=== PATIENT | female | born 1970 | race Caucasian/White ===

== ENCOUNTER 2016-12-07 11:14 | Emergency (ER) | payer OTHER ==
--- NOTE | 2016-12-07 12:28 | ED ORDER SUMMARY ---
..... Patient: LIBAN RODGERS OrderSheet [facility] VisitID: [id number] [address] [place] [address] 45y, F Registration Date/Time: 12/07/2016 ORDER SHEET Weight: 71.2 kg (stated) Allergies: Penicillins, Sulfa Antibiotics, Compazine, Aleve GENERAL ORDERS: MEDICATION ORDERS: Dilaudid IM 2 mg (HIGH ALERT MEDICATION, NOW) (11:51 12/07/2016 Tabby HARRIS) (Ack 11:52 KPajermaine-Lore R.N.) (12:00 KPajermaine-Lore R.N.) Zofran ODT PO 4 mg (NOW) (11:52 12/07/2016 Tabby HARRIS) (Ack 11:52 KPajermaine-Lore R.N.) (12:00 KPajermaine-Ramonan R.N.) IV FLUIDS: ORDER SHEET NOTES: [Electronically signed by Steve Bassett R.N. (13:07 12/07/2016)] [Electronically signed by Chuck Marroquin DO (17:13 12/07/2016)] [Electronically locked/signed by Steve Bassett R.N. (13:07 12/07/2016)]
--- NOTE | 2016-12-07 12:28 | ED NURSING NOTES ---
Clinical Report - Nurses [facility] [address] [place] [address] 12/07/2016 11:15 Patient: LIBAN RODGERS TRIAGE Triage time 11:Dec 07 2016. Acuity: LEVEL 2. Chief Complaint: Location of symptoms- lower back (with radiation to the left leg) (pt reports being ill with URI symptoms for 2 weeks, pt while coughing and sneezing sitting at desk pt had sudden onset of left sided low back pain with radiation down left leg). LEFT LOWER EXTREMITY PAIN. Alert. No acute distress. SUSAN COMA SCORE: Wellesley Coma Scale: 15- eyes open spontaneously (4); best verbal response- oriented x 4 (5); best motor response- obeys commands (6). --11:34 Steve Bassett R.N. 11:21 12/07/16. BP: 143/85. HR: 104. RR: 17. O2 saturation: 99%. Temp: 98.0 F. Pain level now 8/10. --11:34 Steve Bassett R.N. Weight: 71.2 kg stated. Height/Length: 63 inches Per Patient. BMI: 27.8. --11:30 Steve Bassett R.N. Medications TraZODone HCl Oral (Tablet 100 mg) 1 tablet, at bedtime. --11:27 Steve Bassett R.N. Depo-Provera Intramuscular (last given x 2 months). --11:27 Steve Bassett R.N. Allergies Penicillins. --11:26 Steve Bassett R.N. Sulfa Antibiotics. --11:26 Steve Bassett R.N. Compazine. --11:26 Steve Bassett R.N. Aleve. --11:26 Steve Bassett R.N. History Arrived by private vehicle. Historian: patient and family. Accompanied by family and daughter. No injury occurred. It is described as radiating to the left lower back, lower extremity and thigh. Provoking / relieving factors: worsened by movement, sitting, standing, walking and cough and not worsened by lying down. The patient has had trouble walking. Treatment [employer]: Applied ice and heat. Took ibuprofen. (voltaren cream, lido patches). PAST MEDICAL HX: Negative. Tetanus status: up-to-date. Immunizations: up-to-date. Last normal menstrual period- 4 years pt on depo provera 11:30 Dec 07 2016. SOCIAL HX: Heavy tobacco smoker (cigarette)- less than 1 pack per day. Alcohol use; consumes liquor weekly and wine weekly. No drug use. ABUSE ASSESSMENT: No report of abuse. SELF HARM ASSESSMENT: A self harm assessment was performed. The patient answered "no" to the question "Have you recently felt down, depressed, or hopeless?", "Have you noticed less interest or pleasure in doing things?", "Do you have thoughts of harming or killing yourself?", "Are you here because you tried to hurt yourself?", "Have you ever tried to hurt yourself before today?", "Have you recently had thoughts about harming or killing others?" and "Do you have any dangerous items in your possession?". FALL RISK ASSESSMENT: Fall risk assessment completed. No fall risk identified. NUTRITIONAL RISK ASSESSMENT: The nutritional risk assessment revealed no deficiencies. FUNCTIONAL ASSESSMENT: Functional assessment: no impairments noted. LEARNING NEEDS ASSESSMENT: The learning needs assessment revealed no barriers. SKIN INTEGRITY ASSESSMENT: Skin integrity risk assessment completed. No skin integrity risk identified. --11:34 Steve Bassett RKiN. Interventions ID and allergy band on patient. --11:34 Steve Bassett RJillian. PHYSICAL ASSESSMENT 11:35 12/07/16. Ambulatory to room. Patient gowned. GENERAL / NEURO / PSYCH: Oriented X 4. Alert. Appears in no acute distress. Appears in pain. EXTREMITIES: Limited ROM present (due to pain). Extremity pulses are within normal limits. Neuro-vascular status intact to the extremity. No lower extremity edema. Left hip: (pain to left lower back that radiates down left leg- NKT). SKIN: Skin intact. Skin is warm and dry. BACK: Normal inspection of the back. Limited ROM in the back- (limited movement due to pain). --11:35 Steve Bassett R.N. NURSING PROGRESS NOTES 11:42 12/07/16. Reassurance given. Two patient identifiers checked. Call light placed in reach. Side rails up x 1. Bed placed in lowest position. Brakes of bed on. --11:52 Steve Bassett R.N. 12:00 12/07/2016 Zofran ODT (Ondansetron) PO Oral Disintegrating Tablets 4 mg given. Allergies verified and confirmed 5 rights. --12:00 Steve Bassett R.N. 12:00 12/07/2016 Dilaudid (HYDROmorphone HCl PF) IM 2 mg given. Given in the right gluteus bobbi. Allergies verified, confirmed 5 rights and sedative warning given to the patient and patient's family. --12:00 Steve Bassett R.N. Call light placed in reach. Bed placed in lowest position. Brakes of bed on. Patient waiting for (dispo paperwork). ( pt reports dec in pain following meds given, "I feel kind of like butterflies in my stomach so it's working" pt with family at bedside, call light in reach, waiting paperwork for dispo home). --12:44 Steve Bassett R.N. 12:44 12/07/2016 Dilaudid IM Response: no adverse reaction pain is improving. Symptoms have improved the patient feels better. --12:45 Steve Bassett R.N. 12:45 12/07/2016 Zofran ODT PO Response: no adverse reaction symptoms have improved the patient feels better. --12:45 Steve Bassett R.N. Reassessment after medication administered. She is calm and resting quietly and has had no adverse reaction. Overall patient status is improved. GENERAL / NEURO / PSYCH: Alert. Oriented X 4. RESPIRATORY: No respiratory distress. --12:45 Steve Bassett R.N. DISPOSITION / DISCHARGE 12:57 12/07/16. Condition at departure: improved. No learning barriers present. Discharge instructions provided and reviewed with the patient and family. Reviewed medication(s) side effects information. Prescription(s) given to the patient. Activity restrictions reviewed (reviewed MDs instructions for pt). Work note given. Patient verbalized understanding. Written instructions provided in Syriac. The patient was discharged by the physician. She was discharged home and accompanied by family. She left the Emergency Department ambulatory and via private vehicle. Family member driving. ( pt dc home ambulatory, reports some improvement in condition, given rx and f/u. pt enc to rest and follow dr's instructions for followup). --13:06 Steve Bassett R.N. 12:57 12/07/16. BP: 134/75. HR: 92. RR: 17. O2 saturation: 99%. Temp: 98.1 F. Pain level now 02/16. --13:06 Steve Bassett R.N. Locked/Released at 12/07/2016 13:07 by Steve Bassett R.N.
--- NOTE | 2016-12-07 12:28 | ED CLINICAL REPORT ---
Clinical Report - Physicians/Mid Levels [facility] [address] [place] [address] 12/07/2016 11:15 Patient: LIBAN RODGERS Time Seen: 11:42. Arrived- By private vehicle. Historian- patient. HISTORY OF PRESENT ILLNESS Chief Complaint: BACK PAIN. Onset- about 2 days ago and it is still present. It was gradual in onset and has been waxing/waning. Modifying factors- worsened by walking, rotation of the body, bending over or lifting. Relieved by remaining still. It is described as being moderate in degree and in the area of the left lower lumbar spine and left gluteus and radiating to the left thigh (no pain past the knee). The pain does not radiate to the left knee. The quality is noted to be "pain" and similar to prior episodes. No bladder dysfunction, bowel dysfunction, sensory loss or motor loss. Additional history - pt reports being ill with URI symptoms for 2 weeks, pt while coughing and sneezing sitting at desk pt had sudden onset of left sided low back pain with radiation down left leg. Patient notes the possibility of an injury but denies injury to the head or neck. Mechanism of injury- she was lifting, turning and bending. Occurred at home. No other injury. Similar symptoms previously: Recent medical care: Not recently seen/assessed. REVIEW OF SYSTEMS Last normal menstrual period- Last normal menstrual period- 4 years pt on depo provera 11:30 Dec 07 2016. No fever, chills, difficulty with urination, urinary frequency or hematuria. No skin rash, headache, sore throat, cough or difficulty breathing. No chest pain, abdominal pain, nausea, vomiting or diarrhea. No black stools or bloody stools. The patient has had nasal congestion. All systems otherwise negative, except as recorded above. PAST HISTORY Has had back injury. She has had prior back pain. Left upper extremity fracture repair Prior opiate dependence - on methadone in the past. No history of aortic aneurysm. No history of coronary artery disease or peripheral vascular disease. Has not had urinary calculi. Has not had UTI. Medications: Depo-Provera Intramuscular (last given x 2 months). TraZODone HCl Oral (Tablet 100 mg) 1 tablet, at bedtime. Allergies: Aleve. Compazine. Penicillins. Sulfa Antibiotics. SOCIAL HISTORY Smoker- current status unknown. Alcohol use. No drug use. Is a local resident. 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 ADDITIONAL NOTES The nursing notes have been reviewed. PHYSICAL EXAM Vital Signs: 12/07/2016 11:21 BP: 143/85. HR: 104. RR: 17. O2 saturation: 99%. Temp: 98.0 F. Appearance: Alert. Patient in moderate distress. HEENT: Normal external inspection. Eyes: No scleral icterus or pale conjunctivae. ENT: Pharynx normal. No pharyngeal erythema or tonsillar exudate. Neck: Normal inspection. Neck nontender. Painless ROM. CVS: Heart sounds normal. Pulses normal. Respiratory: No respiratory distress. Abdomen: No visible injury. Soft and nontender. No mass. Back: Normal inspection. Moderate soft tissue tenderness in the right lower lumbar area. No vertebral point tenderness or CVA tenderness. Skin: Skin warm and dry. Normal skin color. Normal skin turgor. Extremities: Extremities exhibit normal ROM. No lower extremity edema. Extremities nontender. No calf tenderness. Neuro: Oriented X 3. Abnormal mood/affect. No motor deficit. No sensory deficit. Straight leg raising: negative on the right and negative on the left. Reflexes normal. Reflex exam: right patellar 2+, left patellar 2+, right Achilles 2+ and left Achilles 2+. PROGRESS AND PROCEDURES Course of Care: Zofran 4 mg ODT PO given. Dilaudid 2 mg IM given. No signs of cord compression now. No pain below the knee and neg SLR now. No irritative voiding symptoms. She reports blood in her urine since she was a child - no change in recent months. No reason to suspect spinal / epidural infectious process / discitis. She may need a nonermergent MRI if not improving. She has had prior opiate dependence and has required methadone maintenance, but states this was at least 4 years ago. I have discussed the use of opiate pain medications with patient and she feels she would like to use them for this pain. She is instructed that going forward, she will need to have a pcp and / or pain specialist manage her pain if opiates area required. No indication for further emergent imaging or lab. Patient/family counseled. Old ED records reviewed. Disposition: Discharged. Condition: stable and improved. CLINICAL IMPRESSION Acute left sided sciatica with low back pain. Essential hypertension. URI - resolving. INSTRUCTIONS Apply ice. Limit lifting. Rest. Do not work for three days. Warnings: SEDATIVE MEDICATION: You were given sedative medication during your visit. Do not drive or operate dangerous machinery. CONTROLLED SUBSTANCE WARNINGS. Further evaluation is necessary in order to conduct further tests (You may need an MRI of your back if not improving; You report having chronic blood in your urine since childhod - you will need to see a urologist for an evaluation of this). It is very important to follow up with a physician. GENERAL WARNINGS: Return or contact your physician immediately if your condition worsens or changes unexpectedly, if not improving as expected, or if other problems arise. Prescription Medications: Hydrocodone/APAP 5mg/325mg: take 1 to 2 orally every 6 hours as needed for pain. Dispense fifteen (15). No refills. Flexeril 10 mg: Take 1 orally every 8 hours as needed for muscle spasm. Dispense twenty (20). No refills. Substitution is permissible. Follow-up: Follow up with your doctor Please follow up with the walk-in clinic affiliated with your doctor if you need any ongoing narcotic pain medication. You may need additional imaging tests which can be ordered by your clinic pending the first appointment with your new primary care doctor in about three days. Screening today revealed the patient's blood pressure to be in the hypertensive range. The patient should follow up with a primary care provider for blood pressure management. (Electronically signed by Chuck Marroquin DO 12/07/2016 17:13)
--- NOTE | 2016-12-07 12:28 | ED ORDER SUMMARY ---
..... Patient: LIBAN RODGERS OrderSheet [facility] VisitID: [id number] [address] [place] [address] 45y, F Registration Date/Time: 12/07/2016 ORDER SHEET Weight: 71.2 kg (stated) Allergies: Penicillins, Sulfa Antibiotics, Compazine, Aleve GENERAL ORDERS: MEDICATION ORDERS: Dilaudid IM 2 mg (HIGH ALERT MEDICATION, NOW) (11:51 12/07/2016 Tabby HARRIS) (Ack 11:52 KPajermaine-Lore R.N.) (12:00 KPajermaine-Lore R.N.) Zofran ODT PO 4 mg (NOW) (11:52 12/07/2016 Tabby HARRIS) (Ack 11:52 KPajermaine-Lore R.N.) (12:00 KPajermaine-Ramonan R.N.) IV FLUIDS: ORDER SHEET NOTES: [Electronically signed by Steve Bassett R.N. (13:07 12/07/2016)] [Electronically signed by Chuck Marroquin DO (17:13 12/07/2016)] [Electronically locked/signed by Steve Bassett R.N. (13:07 12/07/2016)]
--- NOTE | 2016-12-07 17:13 | ED MED RECONCILIATION SUMMARY ---
Patient: LIBAN RODGERS Medication Reconciliation Report [facility] VisitID: [id number] [place] [address] 45y, F Registration Date/Time: 12/07/2016 Weight: 71.2 kg Height/Length: 63 in. BMI: 27.8 ALLERGIES: Aleve, Compazine, Penicillins, Sulfa Antibiotics The patient's Home Medications are listed below: THE FOLLOWING MEDICATIONS NEED TO BE RECONCILED: Depo-Provera Intramuscular, last given x 2 months TraZODone HCl Oral (100 mg) 1 tablet, at bedtime The source(s) of the original Home Medication information: Not obtained. The following Medications were given to the patient in the Emergency Department: Zofran ODT [PO] PO 4 mg, administered: 12/07/2016 12:00:00 PM Dilaudid [IM] IM 2 mg, administered: 12/07/2016 12:00:00 PM The following Medications were prescribed to the patient: Hydrocodone/APAP 5mg/325mg: take 1 to 2 orally every 6 hours as needed for pain. Dispense fifteen (15). No refills. -- Chuck Marroquin DO Flexeril 10 mg: Take 1 orally every 8 hours as needed for muscle spasm. Dispense twenty (20). No refills. Substitution is permissible. -- Chuck Marroquin DO
--- NOTE | 2016-12-07 17:13 | ED MAR SUMMARY ---
..... Medication Administration Record [facility] [address] [place] [address] Patient: LIBAN RODGERS Visit ID: [id number] 45y, F Weight: 71.2 kg Height/Length: 63 in BMI: 27.8 ALLERGIES: Aleve, Compazine, Sulfa Antibiotics, Penicillins Given 12:00 12/07/2016 Steve Bassett RMelly Medication Administered: DILAUDID [IM] (HYDROMORPHONE HCL PF), Dose: 2 mg IM. Medication Ordered: Dilaudid IM 2 mg (HIGH ALERT MEDICATION, NOW). Given 12:00 12/07/2016 Steve Bassett RMelly Medication Administered: ZOFRAN ODT [PO] (ONDANSETRON), Dose: 4 mg Oral Disintegrating Tablets PO. Medication Ordered: Zofran ODT PO 4 mg (NOW).
--- NOTE | 2016-12-07 17:13 | ED DISCHARGE INSTRUCTIONS ---
Patient: LIBAN RODGERS General Instructions [facility] VisitID: [id number] [place] [address] 45y, F Registration Date/Time: 12/07/2016 Acute left sided sciatica with low back pain. Essential hypertension. URI - resolving. INSTRUCTIONS Apply ice. Limit lifting. Rest. Do not work for three days. Warnings: SEDATIVE MEDICATION: You were given sedative medication during your visit. Do not drive or operate dangerous machinery. CONTROLLED SUBSTANCE WARNINGS. Further evaluation is necessary in order to conduct further tests (You may need an MRI of your back if not improving; You report having chronic blood in your urine since childhod - you will need to see a urologist for an evaluation of this). It is very important to follow up with a physician. GENERAL WARNINGS: Return or contact your physician immediately if your condition worsens or changes unexpectedly, if not improving as expected, or if other problems arise. Prescription Medications: Hydrocodone/APAP 5mg/325mg: take 1 to 2 orally every 6 hours as needed for pain. Dispense fifteen (15). No refills. Flexeril 10 mg: Take 1 orally every 8 hours as needed for muscle spasm. Dispense twenty (20). No refills. Substitution is permissible. Follow-up: Follow up with your doctor Please follow up with the walk-in clinic affiliated with your doctor if you need any ongoing narcotic pain medication. You may need additional imaging tests which can be ordered by your clinic pending the first appointment with your new primary care doctor in about three days. Screening today revealed the patient's blood pressure to be in the hypertensive range. The patient should follow up with a primary care provider for blood pressure management. ADDITIONAL INFORMATION Sciatica Sciatica ("Lumbar Radiculopathy") causes a pain that spreads from the lower back down into the buttock, hip and leg. Sometimes leg pain can occur without any back pain. Sciatica is due to irritation or pressure on a spinal nerve as it comes out of the spinal canal. This is most often due to a bulge or rupture of a nearby spinal disk (the cartilage cushion between each spinal bone), which presses on a nearby nerve. Other causes include spinal stenosis (narrowing of the spinal canal) and spasm of the pyriform muscle (a muscle in the buttocks that the sciatic nerve passes through). Sciatica may begin after a sudden twisting/bending force (such as in a car accident), or sometimes after a simple awkward movement. In either case, muscle spasm is commonly present and contributes to the pain. The diagnosis of sciatica is made from the symptoms and physical exam. Unless you had a physical injury (such as a car accident or fall), X-rays are usually not ordered for the initial evaluation of sciatica because the nerves and disks cannot be seen on an x-ray. If signs of a compressed nerve are present (for example, loss of tendon reflex or strength in the leg), an MRI (magnetic resonance imaging) scan will need to be scheduled as an outpatient. Most sciatica (80-90%) gets better with medicine, exercise, physical therapy. If symptoms continue after at least three months of medical treatment, surgery may be considered. Home Care: You may need to stay in bed the first few days. But, as soon as possible, begin sitting or walking to avoid problems with prolonged bed rest. When in bed, try to find a position of comfort. A firm mattress is best. Try lying flat on your back with pillows under your knees. You can also try lying on your side with your knees bent up towards your chest and a pillow between your knees. Avoid prolonged sitting. This puts more stress on the lower back than standing or walking. Some persons find relief with heat (hot shower, hot bath or heating pad) and massage, while others prefer cold packs (crushed or cubed ice in a plastic bag, wrapped in a towel). Try both and use the method that feels best for 20 minutes several times a day. You may use acetaminophen (Tylenol) or ibuprofen (Motrin, Advil) to control pain, unless another pain medicine was prescribed. [ NOTE: If you have chronic liver or kidney disease or ever had a stomach ulcer or GI bleeding, talk with your doctor before using these medicines.] Be aware of safe lifting methods and do not lift anything over 15 pounds until all the pain is gone. Follow Up with your doctor or this facility if your symptoms do not start to improve after one week. Physical therapy or further testing may be needed. [NOTE: If X-rays were taken, they will be reviewed by a radiologist. You will be notified of any new findings that may affect your care.] Get Prompt Medical Attention if any of the following occur: Pain becomes worse, not controlled by the prescribed medicine Weakness or numbness in one or both legs Numbness in the groin, genital area Loss of bowel or bladder control High Blood Pressure -- To Be Confirmed [No Tx] Your blood pressure was higher today than normal. Sometimes anxiety or pain can cause a temporary rise in blood pressure that later returns to normal. If your blood pressure is high on one measurement, this does not mean that you have hypertension (a chronic illness). However, you must have your blood pressure measured again within the next few days to find out if its still high. A normal blood pressure is 120/80 or less. The first (top) number is the "systolic" pressure. The second (bottom) number is the "diastolic" pressure. Hypertension exists when either the top number is 140 or higher, OR the bottom number is 90 or higher on repeated measurements. Blood pressure in the range of 120-140 (systolic) or 80-89 (diastolic) is considered "pre-hypertension". This means your are at risk for getting hypertension. You should have regular blood pressure checks to be sure your blood pressure is not rising. Home Care: Measure your blood pressure on 3 different days and write down the results. This can be done at your doctor's office or this facility. Some pharmacies and grocery stores offer automated blood pressure machines for your use. Follow Up: If your blood pressure is "high" (over 120/80) on 2 out of 3 days, you will need to follow up with your doctor for further evaluation and treatment. DO NOT PUT THIS OFF! Untreated high blood pressure increases the risk for heart attack, also known as acute myocardial infarction, or AMI, and stroke. It is a treatable condition. Get Prompt Medical Attention if any of the following occur: Chest pain or shortness of breath Severe headache Throbbing or rushing sound in the ears Nosebleed Sudden severe abdominal pain Extreme drowsiness, confusion or fainting Dizziness or vertigo (dizziness with spinning sensation) Weakness of an arm or leg or one side of the face Difficulty with speech or vision Hydrocodone Bitartrate, Acetaminophen Oral tablet What is this medicine? ACETAMINOPHEN; HYDROCODONE (a set a IVA harlan fen; freddie droe KOE done) is a pain reliever. It is used to treat mild to moderate pain. How should I use this medicine? Take this medicine by mouth. Swallow it with a full glass of water. Follow the directions on the prescription label. If the medicine upsets your stomach, take the medicine with food or milk. Do not take more than you are told to take. Talk to your director outpatient services regarding the use of this medicine in children. This medicine is not approved for use in children. What side effects may I notice from receiving this medicine? Side effects that you should report to your doctor or health progressive care unit registered nurse as soon as possible: allergic reactions like skin rash, itching or hives, swelling of the face, lips, or tongue breathing problems confusion feeling faint or lightheaded, falls stomach pain yellowing of the eyes or skin Side effects that usually do not require medical attention (report to your doctor or health progressive care unit registered nurse if they continue or are bothersome): nausea, vomiting stomach upset What may interact with this medicine? alcohol antihistamines isoniazid medicines for depression, anxiety, or psychotic disturbances medicines for sleep muscle relaxants naltrexone narcotic medicines (opiates) for pain phenobarbital ritonavir tramadol What if I miss a dose? If you miss a dose, take it as soon as you can. If it is almost time for your next dose, take only that dose. Do not take double or extra doses. Where should I keep my medicine? Keep out of the reach of children. This medicine can be abused. Keep your medicine in a safe place to protect it from theft. Do not share this medicine with anyone. Selling or giving away this medicine is dangerous and against the law. Store at room temperature between 15 and 30 degrees C (59 and 86 degrees F). Protect from light. Keep container tightly closed. Throw away any unused medicine after the expiration date. Discard unused medicine and used packaging carefully. Pets and children can be harmed if they find used or lost packages. What should I tell my health care provider before I take this medicine? They need to know if you have any of these conditions: brain tumor Crohn's disease, inflammatory bowel disease, or ulcerative colitis drink more than 3 alcohol-containing drinks per day drug abuse or addiction head injury heart or circulation problems kidney disease or problems going to the bathroom liver disease lung disease, asthma, or breathing problems an unusual or allergic reaction to acetaminophen, hydrocodone, other opioid analgesics, other medicines, foods, dyes, or preservatives or trying to get breast-feeding What should I watch for while using this medicine? Tell your doctor or health progressive care unit registered nurse if your pain does not go away, if it gets worse, or if you have new or a different type of pain. You may develop tolerance to the medicine. Tolerance means that you will need a higher dose of the medicine for pain relief. Tolerance is normal and is expected if you take the medicine for a long time. Do not suddenly stop taking your medicine because you may develop a severe reaction. Your body becomes used to the medicine. This does NOT mean you are addicted. Addiction is a behavior related to getting and using a drug for a non-medical reason. If you have pain, you have a medical reason to take pain medicine. Your doctor will tell you how much medicine to take. If your doctor wants you to stop the medicine, the dose will be slowly lowered over time to avoid any side effects. You may get drowsy or dizzy when you first start taking the medicine or change doses. Do not drive, use machinery, or do anything that may be dangerous until you know how the medicine affects you. Stand or sit up slowly. There are different types of narcotic medicines (opiates) for pain. If you take more than one type at the same time, you may have more side effects. Give your health care provider a list of all medicines you use. Your doctor will tell you how much medicine to take. Do not take more medicine than directed. Call emergency for help if you have problems breathing. The medicine will cause constipation. Try to have a bowel movement at least every 2 to 3 days. If you do not have a bowel movement for 3 days, call your doctor or health progressive care unit registered nurse. Too much acetaminophen can be very dangerous. Do not take Tylenol (acetaminophen) or medicines that contain acetaminophen with this medicine. Many non-prescription medicines contain acetaminophen. Always read the labels carefully. Cyclobenzaprine Hydrochloride Oral tablet What is this medicine? CYCLOBENZAPRINE (christelle munguia) is a muscle relaxer. It is used to treat muscle pain, spasms, and stiffness. How should I use this medicine? Take this medicine by mouth with a glass of water. Follow the directions on the prescription label. If this medicine upsets your stomach, take it with food or milk. Take your medicine at regular intervals. Do not take it more often than directed. Talk to your director outpatient services regarding the use of this medicine in children. Special care may be needed. What side effects may I notice from receiving this medicine? Side effects that you should report to your doctor or health progressive care unit registered nurse as soon as possible: allergic reactions like skin rash, itching or hives, swelling of the face, lips, or tongue chest pain fast heartbeat hallucinations seizures vomiting Side effects that usually do not require medical attention (report to your doctor or health progressive care unit registered nurse if they continue or are bothersome): headache What may interact with this medicine? Do not take this medicine with any of the following medications: cisapride droperidol flecainide grepafloxacin halofantrine levomethadyl MAOIs like Carbex, Eldepryl, Marplan, Nardil, and Parnate nilotinib pimozide probucol sertindole This medicine may also interact with the following medications: abarelix alcohol contrast dyes dolasetron guanethidine medicines for cancer medicines for depression, anxiety, or psychotic disturbances medicines to treat an irregular heartbeat medicines used for sleep or numbness during surgery or procedure methadone octreotide ondansetron palonosetron phenothiazines like chlorpromazine, mesoridazine, prochlorperazine, thioridazine some medicines for infection like alfuzosin, chloroquine, clarithromycin, levofloxacin, mefloquine, pentamidine, troleandomycin tramadol vardenafil What if I miss a dose? If you miss a dose, take it as soon as you can. If it is almost time for your next dose, take only that dose. Do not take double or extra doses. Where should I keep my medicine? Keep out of the reach of children. Store at room temperature between 15 and 30 degrees C (59 and 86 degrees F). Keep container tightly closed. Throw away any unused medicine after the expiration date. What should I tell my health care provider before I take this medicine? They need to know if you have any of these conditions: heart disease, irregular heartbeat, or previous heart attack liver disease thyroid problem an unusual or allergic reaction to cyclobenzaprine, tricyclic antidepressants, lactose, other medicines, foods, dyes, or preservatives or trying to get breast-feeding What should I watch for while using this medicine? Check with your doctor or health progressive care unit registered nurse if your condition does not improve within 1 to 3 weeks. You may get drowsy or dizzy when you first start taking the medicine or change doses. Do not drive, use machinery, or do anything that may be dangerous until you know how the medicine affects you. Stand or sit up slowly. Your mouth may get dry. Drinking water, chewing sugarless gum, or sucking on hard candy may help. You have been given the following additional information: Back Pain W/ Sciatica Hypertension, To Be Confirmed Hydrocodone Bitartrate, Acetaminophen Oral tablet Cyclobenzaprine Hydrochloride Oral tablet Limit lifting. Rest. Do not work for three days. (Electronically signed by Chuck Marroquin DO 12/07/2016 17:13)
--- NOTE | 2016-12-07 17:13 | ED MAR SUMMARY ---
..... Medication Administration Record [facility] [address] [place] [address] Patient: LIBAN RODGERS Visit ID: [id number] 45y, F Weight: 71.2 kg Height/Length: 63 in BMI: 27.8 ALLERGIES: Aleve, Compazine, Sulfa Antibiotics, Penicillins Given 12:00 12/07/2016 Steve Bassett RMelly Medication Administered: DILAUDID [IM] (HYDROMORPHONE HCL PF), Dose: 2 mg IM. Medication Ordered: Dilaudid IM 2 mg (HIGH ALERT MEDICATION, NOW). Given 12:00 12/07/2016 Steve Bassett RMelly Medication Administered: ZOFRAN ODT [PO] (ONDANSETRON), Dose: 4 mg Oral Disintegrating Tablets PO. Medication Ordered: Zofran ODT PO 4 mg (NOW).
--- NOTE | 2016-12-07 17:13 | ED MED RECONCILIATION SUMMARY ---
Patient: LIBAN RODGERS Medication Reconciliation Report [facility] VisitID: [id number] [place] [address] 45y, F Registration Date/Time: 12/07/2016 Weight: 71.2 kg Height/Length: 63 in. BMI: 27.8 ALLERGIES: Aleve, Compazine, Penicillins, Sulfa Antibiotics The patient's Home Medications are listed below: THE FOLLOWING MEDICATIONS NEED TO BE RECONCILED: Depo-Provera Intramuscular, last given x 2 months TraZODone HCl Oral (100 mg) 1 tablet, at bedtime The source(s) of the original Home Medication information: Not obtained. The following Medications were given to the patient in the Emergency Department: Zofran ODT [PO] PO 4 mg, administered: 12/07/2016 12:00:00 PM Dilaudid [IM] IM 2 mg, administered: 12/07/2016 12:00:00 PM The following Medications were prescribed to the patient: Hydrocodone/APAP 5mg/325mg: take 1 to 2 orally every 6 hours as needed for pain. Dispense fifteen (15). No refills. -- Chuck Marroquin DO Flexeril 10 mg: Take 1 orally every 8 hours as needed for muscle spasm. Dispense twenty (20). No refills. Substitution is permissible. -- Chuck Marroquin DO
== END 2016-12-07 12:57 | disposition home or self-care (01) ==
LOC: ED SRH 11:14
DX: M54.42 Lumbago with sciatica, left side (principal); I10 Essential (primary) hypertension; J06.9 Acute upper respiratory infection, unspecified; Z79.899 Other long term (current) drug therapy; Z88.2 Allergy status to sulfonamides; Z88.0 Allergy status to penicillin; Z88.8 Allergy status to other drugs, medicaments and biological substances

== ENCOUNTER 2017-01-18 13:12 | Outpatient (CLI) | payer OTHER ==
--- NOTE | 2017-01-18 15:01 | DIAGNOSTIC IMAGING REPORT ---
REFERRING PHYSICIAN/PROVIDER: Law Leal MD [employer]SULTING [employer]ANT TECHNICIAN: Ashkan Dale MD INDICATION: SINUS TACHYCARDIA Procedure: A two-dimensional transthoracic echocardiogram with color flow and Doppler was performed. The study quality was technically adequate. There is no prior echocardiogram noted for this patient. The patient was in normal sinus rhythm during the exam. Left Ventricle: The left ventricle is normal in size. Left ventricular wall thickness is normal. Left ventricular systolic function is normal. The ejection fraction is estimated to be 60-65%. There are no obvious focal wall motion abnormalities noted but poor endocardial definition reduces the sensitivity for the detection of such. Assessment of diastolic parameters indicates normal left ventricular diastolic function and normal filling pressures. Right Ventricle: The right ventricle is normal in size and function. Atria: Both atria are normal in size. The interatrial septum is intact with no evidence for an atrial septal defect. Mitral Valve: The mitral valve is normal in structure and function. There is no mitral regurgitation. Aortic Valve: The aortic valve is normal in structure and function. There is no aortic regurgitation. Tricuspid Valve: The tricuspid valve is normal in structure and function. No tricuspid regurgitation. Pulmonary artery pressures cannot be estimated because of the lack of a measurable TR jet velocity. Pulmonic Valve: The pulmonic valve is not well visualized. There is no pulmonic valvular regurgitation. There is no significant valvular heart disease. Great Vessels: The aortic root is normal size. The ascending aorta is normal in size. The IVC is of normal diameter and collapses greater than 50% with a sniff. This suggests a low right atrial pressure of 3 mm Hg. Pericardium/ Pleura There is no pericardial effusion. IMPRESSION: Left ventricular wall thickness is normal. Left ventricular systolic function is normal. The ejection fraction is estimated to be 60-65%. There are no obvious focal wall motion abnormalities noted but poor endocardial definition reduces the sensitivity for the detection of such. The right ventricle is normal in size and function. Pulmonary artery pressures cannot be estimated because of the lack of a measurable TR jet velocity. Both atria are normal in size. There is no significant valvular heart disease. The aortic root is normal size.
== END 2017-01-18 23:00 ==
LOC: US SRH 13:12
DX: R00.0 Tachycardia, unspecified (principal)